=== PATIENT | male | born 1950 | race Caucasian/White ===

== ENCOUNTER 2019-05-20 19:13 | Observation (INO) | payer MEDICARE, OTHER ==
[~2019-05-20] VITALS: Ht 175.3 cm; Wt 70.3 kg
[2019-05-20] MEDS ORDERED: BAYER CHEWABLE81 MG PO (19:17)
[2019-05-20] MEDS ORDERED: FLOMAX0.4 MG PO (19:17)
[2019-05-20] MEDS ORDERED: STOOL SOFTNER (19:17)
[2019-05-20] MEDS ORDERED: LIPITOR20 MG PO (19:17)
[2019-05-20 19:43] VITALS: BP 160/94
[2019-05-20 19:51] LABS: BASOPHILS 0.2 % (0-2); EOSINOPHILS 6.9 % (0-7); HEMATOCRIT 37.8 % (42.0-54.0); HEMOGLOBIN 12.8 g/dL (13.5-17.5); IMMATURE GRANULOCYTES 0.2 % (0-5); LYMPHOCYTES 21.8 % (15-50); MCHC 33.9 g/dL (31.0-37.0); MCV 91.5 fL (80.0-100.0); MONOCYTES 4.2 % (2-11); NEUTROPHILS 66.7 % (40-80); PLATELET COUNT 209 10x3/uL (130-400); RBC 4.13 10x6/uL (4.20-6.10); RDW 13.4 % (11.5-14.5); WBC 6.2 10x3/uL (4.8-10.8)
[2019-05-20 20:01] LABS: APTT 22.8 SECONDS (22.8-39.4); INR 1.01 (0.85-1.17); PROTIME 12.8 SECONDS (11.6-15.0)
[2019-05-20 20:10] LABS: ALBUMIN 3.4 g/dL (3.4-5.0); ALKALINE PHOSPHATASE 90 U/L (46-116); ALT (SGPT) 42 U/L (10-68); CALC OSMOLALITY 284 mosm/kg (275-300); CALCIUM 8.4 mg/dL (8.5-10.1); CARBON DIOXIDE 26.3 mmol/L (21.0-32.0); CHLORIDE - SERUM 106 mmol/L (98-107); CREATININE - SERUM 1.4 mg/dL (0.6-1.3); GLUCOSE 147 mg/dL (74-106); POTASSIUM - SERUM 3.6 mmol/L (3.5-5.1); PROTEIN - SERUM 6.7 g/dL (6.4-8.2); SODIUM 141 mmol/L (136-145); UREA NITROGEN 16 mg/dL (7-18); eGFR NON AFRICAN AMERICAN 53 mL/min (90-120)
[2019-05-20 20:19] LABS: CKMB 1.6 U/L (0.0-3.6); CREATINE KINASE 150 UL (21-232); MAGNESIUM - SERUM 1.7 mg/dL (1.8-2.4)
[2019-05-20 20:20] LABS: TROPONIN-I < 0.017 ng/mL (0.000-0.060)
--- NOTE | 2019-05-20 20:43 | NUR ---
PT STATES STILL EXPERIENCING PAIN BUT INTERMITTENTLY AT A LEVEL 3/10.
[2019-05-20 20:45] VITALS: BP 148/90
--- NOTE | 2019-05-20 21:25 | NUR ---
PT REPORTS NO PAIN AT THIS TIME. RESTING QUIETLY IN BED WITH HOB 30 DEGREES, LIGHT DIMMED, SPOUSE AND FRIENDS AT BEDSIDE.
[2019-05-20 21:46] VITALS: BP 132/68
[2019-05-20 22:45] VITALS: BP 113/68
--- NOTE | 2019-05-20 23:10 | NUR ---
PT TO CT AT THIS TIME.
--- NOTE | 2019-05-20 23:22 | NUR ---
PT RETURNED FROM CT AT THIS TIME.
[2019-05-20 23:45] VITALS: BP 117/56
[2019-05-21] VITALS (8 sets, daily range): BP systolic 108–142; BP diastolic 60–78; BMI 22.9
--- NOTE | 2019-05-21 01:54 | NUR ---
PT RESTING QUIETLY WITH EYES CLOSED, LAYING ON LEFT SIDE, TV ON.
--- NOTE | 2019-05-21 02:57 | NUR ---
REPORT GIVEN TO SONNY GARCIA.
--- NOTE | 2019-05-21 03:06 | NUR ---
ADMITTED FROM ER VIA WHEELCHAIR WITH COMPLAINT OF CHEST PAIN FOLLOWING AN ESOPHAGEAL INJURY. PATIENT IS ALERT AND ORIENTED. HEART SOUNDS WITH NORMAL RATE AND RHYTHM. LUNGS SOUNDS CLEAR BILATERAL. ABDOMEN SOFT, NON TENDER. BOWEL SOUNDS ACTIVE X4. PATIENT SKIN IS DRY AND INTACT, TURGOR IS WITH GOOD ELASTICITY. PATIENT HAS 20G IV IN LEFT AC SL ON ARRIVAL. CALL LIGHT WITHIN REACH, BED LOCKED AND IN LOWEST POSITION. FAMILY AT BEDSIDE.
[2019-05-21 05:56] LABS: BASOPHILS 0.1 % (0-2); EOSINOPHILS 0.3 % (0-7); HEMATOCRIT 37.2 % (42.0-54.0); HEMOGLOBIN 12.7 g/dL (13.5-17.5); IMMATURE GRANULOCYTES 0.2 % (0-5); LYMPHOCYTES 7.2 % (15-50); MCH 31.3 pg (26.0-34.0); MCHC 34.1 g/dL (31.0-37.0); MCV 91.6 fL (80.0-100.0); MEAN PLATELET VOLUME 9.8 fL (7.4-10.4); MONOCYTES 8.2 % (2-11); PLATELET COUNT 184 10x3/uL (130-400); RBC 4.06 10x6/uL (4.20-6.10); RDW 13.4 % (11.5-14.5)
[2019-05-21 06:08] LABS: WBC 11.6 10x3/uL (4.8-10.8)
[2019-05-21 06:40] LABS: ALBUMIN 3.3 g/dL (3.4-5.0); ALKALINE PHOSPHATASE 77 U/L (46-116); ALT (SGPT) 40 U/L (10-68); BILIRUBIN - TOTAL 0.46 mg/dL (0.2-1.3); CALC OSMOLALITY 284 mosm/kg (275-300); CALCIUM 8.3 mg/dL (8.5-10.1); CARBON DIOXIDE 28.7 mmol/L (21.0-32.0); CHLORIDE - SERUM 106 mmol/L (98-107); CREATINE KINASE 111 UL (21-232); CREATININE - SERUM 1.3 mg/dL (0.6-1.3); GLUCOSE 114 mg/dL (74-106); MAGNESIUM - SERUM 1.8 mg/dL (1.8-2.4); PHOSPHOROUS 2.5 mg/dL (2.5-4.9); PROTEIN - SERUM 6.5 g/dL (6.4-8.2); SODIUM 141 mmol/L (136-145); UREA NITROGEN 20 mg/dL (7-18); eGFR NON AFRICAN AMERICAN 58 mL/min (90-120)
[2019-05-21 06:42] LABS: POTASSIUM - SERUM 4.2 mmol/L (3.5-5.1); TROPONIN-I < 0.017 ng/mL (0.000-0.060)
--- NOTE | 2019-05-21 06:45 | NUR ---
TELEMETRY ORDERED BUT NONE AVAILABLE AT THIS TIME.
--- NOTE | 2019-05-21 09:00 | NUR ---
PATIENT IS ALERT/ORIENT. FAMILY IN ROOM WITH PATIENT. CALL LIGHT WITHIN REACH. VOICES NO NEEDS AT THIS TIME. WILL CONTINUE WITH PLAN OF CARE. TELEMTRY ON. SCD'S ON. PATIENT TAKEN DOWN BY STAFF FOR SCOPE OF ESPHAGEAL
[2019-05-21 11:13] LABS: % SATURATION 10 % (15-55); IRON 32 ug/dl (35-150); TOTAL IRON BIND CAPACITY 311 ug/dl (260-445); UNSAT IRON BIND CAPACITY 279 ug/dl (150-375)
[2019-05-21 12:31] LABS: CKMB 0.9 U/L (0.0-3.6); CREATINE KINASE 90 UL (21-232); TROPONIN-I < 0.017 ng/mL (0.000-0.060)
--- NOTE | 2019-05-21 14:58 | NUR ---
I have reviewed this patient and I concur with the Shift Assessment completed by the Licensed Practical Nurse today this shift.
--- NOTE | 2019-05-21 15:56 | NUR ---
PATIENT PRE-OP FOR EGD
--- NOTE | 2019-05-21 17:29 | NUR ---
PATIENT TAKEN FOR EGD BY STAFF
--- NOTE | 2019-05-21 21:27 | NUR ---
PT BACK FROM SURGERY. DENIES PAIN AT THIS TIME. AT BEDSIDE. VITALS STABLE. NO FURTHER CONCERNS AT THIS TIME. BED LOWERED AND LOCKED. CL IN REACH. WILL CTM.
--- NOTE | 2019-05-21 21:28 | NUR ---
PT TEMP 101.7. TYLENOL SUPP GIVEN WILL RECHECK TEMP IN 30 MINUTES. NO FURTHER CONCERNS AT THIS TIME. DENIES PAIN. WILL CTM.
--- NOTE | 2019-05-21 22:29 | NUR ---
PT TEMP 98.2. PT RESTING IN BED COMFORTABLY. WILL CTM.
[2019-05-22] VITALS: BP 124/62
[2019-05-22 04:00] VITALS: BP 122/67
[2019-05-22 05:09] LABS: BASOPHILS 0.2 % (0-2); EOSINOPHILS 5.1 % (0-7); HEMATOCRIT 34.6 % (42.0-54.0); HEMOGLOBIN 11.4 g/dL (13.5-17.5); IMMATURE GRANULOCYTES 0.2 % (0-5); MCH 30.7 pg (26.0-34.0); MCHC 32.9 g/dL (31.0-37.0); MCV 93.3 fL (80.0-100.0); MEAN PLATELET VOLUME 10.1 fL (7.4-10.4); MONOCYTES 9.4 % (2-11); NEUTROPHILS 67.1 % (40-80); PLATELET COUNT 170 10x3/uL (130-400); RBC 3.71 10x6/uL (4.20-6.10); RDW 13.9 % (11.5-14.5)
[2019-05-22 05:29] LABS: WBC 6.6 10x3/uL (4.8-10.8)
[2019-05-22 05:50] LABS: ALBUMIN 2.8 g/dL (3.4-5.0); ANION GAP 12.6 mmol/L (8-16); BILIRUBIN - TOTAL 0.64 mg/dL (0.2-1.3); CALCIUM 7.7 mg/dL (8.5-10.1); CARBON DIOXIDE 24.5 mmol/L (21.0-32.0); CREATININE - SERUM 1.2 mg/dL (0.6-1.3); PHOSPHOROUS 2.2 mg/dL (2.5-4.9); POTASSIUM - SERUM 4.1 mmol/L (3.5-5.1); PROTEIN - SERUM 5.9 g/dL (6.4-8.2)
--- NOTE | 2019-05-22 07:30 | NUR ---
A/A/OX4. ORDER RECEIVED FROM DR. DE LOS SANTOS TO START ON CLEAR LIQUIDS AND ORDER ENTERED. PT DENIES ANY PAIN OR DISCOMFORT AND NO REQUESTS VOICED. ASSESSMENT COMPLETED AND WILL CONTINUE POC. CALL LIGHT IN REACH AND BED IN LOW POSITION. AT BEDSIDE.
--- NOTE | 2019-05-22 07:30 | NUR ---
A/A/OX4. DENIES ANY PAIN AT PRESENT TIME AND VOICES NO REQUESTS OTHER THAN HE WOULD LIKE TO HAVE MILK ON HIS MEAL TRAYS. EXPLAINED TO HIM WHY HE COULD NOT HAVE MILK ON THE RENAL DIET OTHER THAN ONE HALF CUP SKIM MILK AND THAT WAS PROVIDED FOR HIM. ASSESSMENT COMPLETED AND WILL CONTINUE POC. CALL LIGHT IN REACH AND BED IN LOW POSITION.
--- NOTE | 2019-05-22 08:50 | NUR ---
SODIUM PHOSPHATE 15MM IN 250 CC NS HUNG TO INFUSE OVER 4 HOUR PERIOD.
[2019-05-22 09:33] VITALS: Ht 175.3 cm; Wt 70.3 kg
[2019-05-22 09:43] VITALS: BP 132/72
[2019-05-22 13:27] VITALS: BP 146/77
--- NOTE | 2019-05-22 14:40 | NUR ---
I have reviewed this patient and I concur with the Shift Assessment completed by the Licensed Practical Nurse today this shift.
--- NOTE | 2019-05-22 14:47 | NUR ---
DISCHARGE INSTRUCTIONS REVIEWED WITH PT AND HIS . BOTH VERBALIZE UNDERSTANDING WITH NO QUESTIONS. IV REMOVED FROM LEFT AC WITH TIP INTACT.
--- NOTE | 2019-05-22 15:09 | NUR ---
LEFT FLOOR VIA W/C WITH ALL PERSONAL BELONGINGS. LEFT FACILITY VIA PRIVATE VEHICLE WITH AND FRIENDS.
--- NOTE | 2019-05-22 16:50 | MORECARE ---
CASE MANAGEMENT DISCHARGE SUMMARY PATIENT: VICTOR MANUEL BINGHAM UNIT: [id number] ADM DATE: 05/21/19 AGE: 69 : 46 SEX: M ROOM/BED: D.2104 AUTHOR: CORBIN STAFFORD PHYSICIAN: REFERRING PHYSICIAN: CHRISTINA CHRISTINE MD DATE OF SERVICE: 05/22/19 Discharge Plan Patient Name: VICTOR MANUEL BINGHAM [facility] [facility] 1950 Planned Disposition: Home Anticipated Discharge Date: 05/22/19 Discharge Date: 05/22/2019 Expected LOS: 1 Initial Reviewer: [email or web address] Initial Review Date: 05/22/2019 Generated: 05/22/19 5:50 pm Patient Name: VICTOR MANUEL BINGHAM Page [id number] at 1650 All edits/amendments must be made on the electronic document DICTATION DATE: 05/22/191648 UTILITY TRACTOR OPERATOR: BRISSA 05/22/191648 RPT#: [id number] DC DATE:05/22/19 STATUS: DIS IN [facility] [address] [facility] [place] [address] END OF REPORT
== END 2019-05-22 15:11 | disposition home or self-care (01) ==
LOC: D.ER 19:13 → OBSVTIME 05-21 01:25 → D.M2 05-21 01:25
PROVIDERS: Family Medicine; Family Medicine Adult Medicine; ADMIT Family Medicine; ATTEND Family Medicine
DX: R07.9 Chest pain, unspecified (principal); S27.819A Unspecified injury of esophagus (thoracic part), initial encounter; R13.10 Dysphagia, unspecified; E78.5 Hyperlipidemia, unspecified; D64.9 Anemia, unspecified; K59.09 Other constipation; K22.6 Gastro-esophageal laceration-hemorrhage syndrome